=== PATIENT | male | born 1985 | race Caucasian/White ===

== ENCOUNTER 2018-05-30 10:06 | Emergency (ER) | payer OTHER ==
[2018-05-30] MEDS ORDERED: CYCLOBENZAPRINE 10 MG TABLET PO STA (11:29)
[2018-05-30] MEDS ORDERED: LIDOCAINE PATCH 5% TOP PRN (11:29)
[2018-05-30] MEDS ORDERED: IBUPROFEN 400 MG TABLET PO STA (11:29)
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
[2018-05-30 13:10] VITALS: BP 110/71
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
== END 2018-05-30 14:15 | disposition home or self-care (01) ==
LOC: ED 10:06
DX: F17.200 Nicotine dependence, unspecified, uncomplicated (principal); S13.9XXA Sprain of joints and ligaments of unspecified parts of neck, initial encounter; S13.4XXA Sprain of ligaments of cervical spine, initial encounter; V59.49XA Driver of pick-up truck or van injured in collision with other motor vehicles in traffic accident, initial encounter
CPT/HCPCS: 71046; 72050; 99283; A9270

== ENCOUNTER 2019-05-20 09:37 | Emergency (ER) | payer OTHER ==
[2019-05-20] MEDS ORDERED: CHERRY SYRUP 10 ML UDC PO ONE (09:58)
[2019-05-20] MEDS ORDERED: BENZONATATE 100 MG CAPSULE PO STA (09:58)
[2019-05-20] MEDS ORDERED: ALBUTEROL NEB 2.5 MG/3 ML INH STA (09:58)
[2019-05-20] MEDS ORDERED: DEXAMETHASONE 10 MG/ML VIAL PO STA (09:58)
--- NOTE | 2019-05-20 10:01 | ED Physician Documentation ---
History of Present Illness - Stated complaint Stated Complaint: BODY ACHES/COUGH/FEVER - Chief complaint Chief Complaint: Fever - History obtained from History obtained from: Patient, Family - History of Present Illness Timing: How many days ago (4) Pain level max: 6 Pain level now: 5 Improved by: dayquil Worsened by: nothing - Additonal information Additional information: 34-year-old male presents to the emergency department stating that he has had fevers, body aches, coughing and congestion for the past several days. [facility] Influenza testing negative. Patient states that he is continuing to feel worse. He quit smoking 1 month ago. Has had some posttussive emesis. Also having headaches and ear pain. Review of Systems Ten Systems: 10 systems reviewed and negative Constitutional: reports: Fever, Chills Ears: reports: Ear pain (B) Throat: reports: Sore throat Respiratory: reports: Cough GI: denies: Abdominal Pain, Constipation, Diarrhea : denies: Dysuria, Frequency, Hesitancy Skin: denies: Rash Musculoskeletal: denies: Neck pain, Back pain Neurologic: reports: Headache. denies: Focal weakness, Numbness PD PAST MEDICAL HISTORY - Past Medical History Past Medical History: No - Past Surgical History Past Surgical History: No - Present Medications Home Medications: Ambulatory Orders Medication Instructions Recorded Confirmed Albuterol Sulf [Ventolin Hfa 1 - 2 puffs INH Q4HR PRN #1 inhaler 05/20/19 Inhaler] Benzonatate [Tessalon Perle] 100 - 200 mg PO TID PRN #30 capsule 05/20/19 Doxycycline Hyclate 100 mg PO BID #20 capsule 05/20/19 - Allergies Allergies/Adverse Reactions: Allergies Allergy/AdvReac Type Severity Reaction Status Date / Time codeine Allergy Hives Verified 05/20/19 09:43 - Social History Does the pt smoke?: Yes Smoking Status: Former smoker Does the pt drink ETOH?: Yes Does the pt have substance abuse?: No - Immunizations Immunizations are current?: Yes PD ED PE NORMAL - Vitals Vital signs reviewed: Yes - General General: Alert and oriented X 3, No acute distress, Well developed/nourished - HEENT HEENT: PERRL, Moist mucous membranes, Other (Mild erythema to the right tympanic membrane. No fluid present. Left TM is normal. Mild posterior pharyngeal erythema without tonsillar exudates. Uvula midline. No trismus. Normal phonation.) - Neck Neck: Supple, no meningeal sign, Other (Shotty anterior lymphadenopathy) - Cardiac Cardiac: RRR - Respiratory Respiratory: No respiratory distress, Other (Mild wheezing bilaterally. Rhonchi in the left lower lobe) - Abdomen Abdomen: Soft, Non tender, Non distended - Back Back: No CVA TTP, No spinal TTP - Derm Derm: Warm and dry, No rash - Extremities Extremities: No edema - Neuro Neuro: Alert and oriented X 3 - Psych Psych: Normal mood, Normal affect Results - Vitals Vitals: Vital Signs - 24 hr 05/20/19 05/20/19 05/20/19 09:39 10:09 11:58 Temperature 36.8 C 37.2 C Heart Rate 94 94 79 Respiratory 18 18 20 Rate Blood Pressure 138/77 H 117/75 O2 Saturation 95 100 Oxygen O2 Source Room air - Rads (name of study) cxr Radiology: Prelim report reviewed, EMP read contemporaneously, See rad report (Left lower lobe airspace disease) PD MEDICAL DECISION MAKING - ED course Complexity details: reviewed results, re-evaluated patient, considered differential, d/w patient, d/w family ED course: 34-year-old male feels better after albuterol treatment and Tessalon. Also given dexamethasone. Has a left lower lobe pneumonia. Will place on antibiotics for this. No hypoxia or respiratory distress. Patient counseled regarding signs and symptoms for which I believe and urgent re-evaluation would be necessary. Patient with good understanding of and agreement to plan and is comfortable going home at this time This document was made in part using voice recognition software. While efforts are made to proofread this document, sound alike and grammatical errors may occur. Departure - Departure Disposition: 01 Home, Self Care Clinical Impression: Pneumonia Qualifiers: Pneumonia type: due to unspecified organism Laterality: left Lung location: lower lobe of lung Qualified Code(s): J18.1 - Lobar pneumonia, unspecified organism Condition: Good Instructions: ED Pneumonia Adult Follow-Up: Diego Bustillos MD [Primary Care Provider] - Within 1 week Prescriptions: Albuterol Sulf [Ventolin Hfa Inhaler] 1 - 2 puffs INH Q4HR PRN #1 inhaler PRN Reason: Shortness Of Air/Wheezing Benzonatate [Tessalon Perle] 100 - 200 mg PO TID PRN #30 capsule PRN Reason: Cough Doxycycline Hyclate 100 mg PO BID #20 capsule Comments: Return if you worsen. Take all antibiotics until gone. You do have a left lower lobe pneumonia on chest x-ray. Discharge Date/Time: 05/20/19 11:58
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
[2019-05-20] MEDS ORDERED: DOXYCYCLINE 100 MG TABLET PO STA (11:33)
[2019-05-20 11:59] VITALS: BP 117/75
== END 2019-05-20 11:58 | disposition home or self-care (01) ==
LOC: ED 09:37
DX: J18.1 Lobar pneumonia, unspecified organism (principal); Z87.891 Personal history of nicotine dependence
CPT/HCPCS: 71046; 94640; 94664; 99283; 99284; A9270